=== PATIENT | female | born 1985 | race Two or more races ===

== ENCOUNTER 2018-04-29 16:41 | Emergency (ER) | payer SELFPAY ==
[2018-04-29 16:56] VITALS: BP 106/60; PULSE 78; TEMP 98.5; BMI 22.1
--- NOTE | 2018-04-29 17:57 | PDOC ---
History of Present Illness - General Chief Complaint: Rash Stated Complaint: ITCHY RASH Time Seen by Provider: 04/29/18 17:23 - History of Present Illness Initial Comments: 04/29/18 17:54 33-year-old female without comorbidities presents for evaluation of rash without systemic symptoms 3 days Past History - Past Medical History Allergies/Adverse Reactions: Allergies Allergy/AdvReac Type Severity Reaction Status Date / Time No Known Allergies Allergy Verified 04/29/18 16:53 Home Medications: Ambulatory Orders Clobetasol Propionate [Temovate] 30 gm TP BID #1 oint...g. 04/29/18 Permethrin 5% Topical Cream [Elimite -] 1 applic TP ONCE #1 tube 04/29/18 COPD: No Other medical history: DENIES. - Suicide/Smoking/Psychosocial Hx Smoking History: Never smoked Review of Systems - Review of Systems Constitutional: No: Fever Respiratory: No: Shortness of Breath, Wheezing Integumentary: Yes: Pruritus, Rash *Physical Exam - Vital Signs Last Vital Signs Temp Pulse Resp BP Pulse Ox 98.5 F 78 17 106/60 100 04/29/18 16:53 04/29/18 16:53 04/29/18 16:53 04/29/18 16:53 04/29/18 16:53 - Physical Exam Comments: 04/29/18 17:55 HEAD: NC/AT EYES: Conjuntiva clear Ears: Canals and TM's normal NOSE: No d/c THROAT: Moist mucous membrances, oral pharanx clear, uvula midline NECK: Supple without adenopathy CARDIAC: S1 S2 LUNGS: CTA Full and Equal breath sounds ABDOMEN: Soft NT ND MS: Full ROM in all joints without edema NEUROLOGIC: No gross sensory or motor deficits, NVID SKIN: Normal color and temperature there is a maculopapular rash on the right side of the lower back with raised wheals. Maculopapular interdigital involvement bilateral hands without raised wheals Moderate Sedation - Procedure Monitoring Vital Signs: Procedure Monitoring Vital Signs Temperature 98.5 F 04/29/18 16:53 Pulse Rate 78 04/29/18 16:53 Respiratory Rate 17 04/29/18 16:53 Blood Pressure 106/60 04/29/18 16:53 O2 Sat by Pulse Oximetry (%) 100 04/29/18 16:53 *DC/Admit/Observation/Transfer Diagnosis at time of Disposition: Scabies - Discharge Dispostion Disposition: HOME Condition at time of disposition: Stable Decision to Admit order: No - Prescriptions Prescriptions: Permethrin 5% Topical Cream [Elimite -] 1 applic TP ONCE #1 tube - Referrals Referrals: Angelique Britton MD [Staff Physician] - - Patient Instructions Printed Discharge Instructions: Scabies, DI for Scabies Additional Instructions: Please use the cream as directed and repeat in 7 days. Return to the emergency room for worsening symptoms and follow-up with dermatology in 1-2 days for further evaluation and treatment options. - Post Discharge Activity
== END 2018-04-29 18:03 | disposition home or self-care (01) ==
LOC: JERFT 16:41
DX: B86 Scabies (principal)
CPT/HCPCS: 99281-25